=== PATIENT | male | born 2000 | race Caucasian/White ===

== ENCOUNTER → 2018-01-13 | Outpatient (REF) | payer OTHER, BC ==
[2018-01-13 13:16] LABS: INFLUENZA A AMPLIFICATION NEGATIVE (NEGATIVE); INFLUENZA B AMPLIFICATION NEGATIVE (NEGATIVE)
== END ==
LOC: M LAB 12:44
DX: Z11.2 Encounter for screening for other bacterial diseases (principal); Z11.59 Encounter for screening for other viral diseases
CPT/HCPCS: 87430

== ENCOUNTER 2019-03-27 18:03 | Emergency (ER) | payer BC, OTHER ==
[~2019-03-27] VITALS: Ht 180.3 cm; Wt 75.3 kg
[2019-03-27 18:04] VITALS: BP 131/59
--- NOTE | 2019-03-27 18:37 | REP ---
RIGHT HAND, FOUR VIEWS: HISTORY: Injury. There is no acute fracture or dislocation. The joint spaces are normal in appearance. IMPRESSION:There is no acute fracture or dislocation. Electronically Signed by Aly Koenig MD 03/27/2019 07:20 P
[2019-03-27] MEDS ORDERED: IBUPROFEN 600 MG TAB PO ONE (19:00)
== END 2019-03-27 19:03 | disposition home or self-care (01) ==
LOC: M ED 18:03
DX: S60.221A Contusion of right hand, initial encounter (principal); W23.0XXA Caught, crushed, jammed, or pinched between moving objects, initial encounter; Y92.89 Other specified places as the place of occurrence of the external cause; Y93.9 Activity, unspecified; Y99.0 Civilian activity done for income or pay

== ENCOUNTER → 2020-03-11 | Outpatient (REF) | payer OTHER | LOC: M LAB REF 09:37 | PROVIDERS: ATTEND Physician Assistant | DX: J03.90 Acute tonsillitis, unspecified (principal) ==

== ENCOUNTER → 2021-02-09 | Outpatient (REF) | payer OTHER | LOC: M WUC 09:41 | PROVIDERS: ATTEND Physician Assistant | DX: J02.9 Acute pharyngitis, unspecified (principal) ==

== ENCOUNTER 2021-03-23 15:25 | Emergency (ER) | payer BC, OTHER ==
[~2021-03-23] VITALS: Ht 185.4 cm; Wt 174.0 kg
[2021-03-23] MEDS ORDERED: IBUPROFEN 600MG TAB PO ONE (19:35)
[2021-03-23] MEDS ORDERED: CEPHALEXIN 500 MG CAP PO ONE (19:35)
[2021-03-23] MEDS ORDERED: BOOSTRIX/ADACEL VACCINE (DIPHTH/PERTUSS/ACELL/TETANUS) 0.5ML SYR IM ONE (19:45)
--- NOTE | 2021-03-23 20:14 | REP ---
INDICATION: post removal of FB, r/o residual COMPARISON: None. TECHNIQUE: AP and lateral left forearm. FINDINGS: There is no evidence of acute fracture, dislocation, or intrinsic bone disease.In the soft tissues of the proximal to mid forearm there is a rounded 3 mm density which could be calcific. No other abnormal densities are seen in the soft tissues. IMPRESSION: No fracture or dislocation. Round 3 mm density in the soft tissues of the proximal forearm may represent a small calcification. <Electronically signed by Manoj Collins > 03/23/212009
[2021-03-23] MEDS ORDERED: CEPH500C PO (20:18)
[2021-03-23] MEDS ORDERED: NEOSPORIN OINT 0.9 GM PKT TOP ONE (20:20)
[2021-03-23 20:24] VITALS: BP 131/73
== END 2021-03-23 20:34 | disposition home or self-care (01) ==
LOC: M ED 15:25
DX: S51.842A Puncture wound with foreign body of left forearm, initial encounter (principal); X58.XXXA Exposure to other specified factors, initial encounter; Y92.89 Other specified places as the place of occurrence of the external cause; Y93.89 Activity, other specified; Y99.9 Unspecified external cause status; F17.200 Nicotine dependence, unspecified, uncomplicated; Z91.030 Bee allergy status

== ENCOUNTER 2022-01-08 10:59 | Emergency (ER) | payer BC, OTHER ==
[~2022-01-08] VITALS: Ht 182.9 cm; Wt 84.9 kg
[~2022-01-08 10:59] MED LIST: CEPH500C PO
[2022-01-08] MEDS ORDERED: KETOROLAC 30 MG/ML 1ML VIAL IV ONE (13:40)
[2022-01-08] MEDS ORDERED: KETO10TAB PO (13:44)
[2022-01-08 14:13] VITALS: BP 121/71
== END 2022-01-08 14:17 | disposition home or self-care (01) ==
LOC: M ED 10:59
DX: S09.90XA Unspecified injury of head, initial encounter (principal); S40.012A Contusion of left shoulder, initial encounter; Y04.8XXA Assault by other bodily force, initial encounter; Y92.9 Unspecified place or not applicable; Y93.9 Activity, unspecified; Y99.9 Unspecified external cause status; F17.200 Nicotine dependence, unspecified, uncomplicated; Z91.030 Bee allergy status

== ENCOUNTER 2024-02-06 14:50 | Emergency (ER) | payer OTHER, BC ==
[~2024-02-06] VITALS: Ht 180.3 cm; Wt 84.0 kg
[~2024-02-06 14:50] MED LIST changes: +KETO10TAB PO
[2024-02-06 14:53] VITALS: BP 154/85; TEMP 98; O2SAT 98
[2024-02-06] MEDS: LIDOCAINE 5% (LIDODERM) PATCH TD ONE (18:52)
[2024-02-06] MEDS: KETOROLAC 60MG 2ML VIAL IM ONE (18:52)
[2024-02-06] MEDS: methocarbamoL 500 MG TAB PO ONE (18:52)
[2024-02-06] MEDS ORDERED: IBUP-1022 PO (19:42)
[2024-02-06] MEDS ORDERED: METH-1164 PO (19:42)
[2024-02-06] MEDS ORDERED: LIDO5DIS41 TD (19:42)
== END 2024-02-06 19:51 | disposition home or self-care (01) ==
LOC: M ED 14:50
DX: M54.50 Low back pain, unspecified (principal); F17.210 Nicotine dependence, cigarettes, uncomplicated; F10.10 Alcohol abuse, uncomplicated; F19.10 Other psychoactive substance abuse, uncomplicated; Z91.030 Bee allergy status; Z79.1 Long term (current) use of non-steroidal anti-inflammatories (NSAID); Z79.899 Other long term (current) drug therapy
CPT/HCPCS: 72110; 96372; 99282; J1885

== ENCOUNTER → 2024-04-17 | Outpatient (CLI) | payer OTHER, BC ==
[~2024-04-17] MED LIST changes: +IBUP-1022 PO; +LIDO5DIS41 TD; +METH-1164 PO
== END ==
LOC: M PLAIMG 14:21
PROVIDERS: ATTEND Physician Assistant
DX: M51.36 Other intervertebral disc degeneration, lumbar region (principal)

== ENCOUNTER 2025-05-18 14:36 | Emergency (ER) | payer BC, OTHER ==
[~2025-05-18] VITALS: Ht 180.3 cm; Wt 84.8 kg
[~2025-05-18 14:36] MED LIST changes: +LIDO1ADH93 TD; -LIDO5DIS41 TD
[2025-05-18 16:46] LABS: KETONE, URINE AUTO RFX NEGATIVE (NEGATIVE); LEUKOCYTE ESTERASE UR AUTO RFX NEGATIVE (NEGATIVE); MUCUS, URINE RFX SMALL (NEGATIVE); NITRITE, URINE AUTO RFX NEGATIVE (NEGATIVE); RBC, URINE AUTO RFX 0 /HPF (0-3); SQUAM EPITHELIAL CELL UR AURFX 0 /HPF (0-6); WBC, URINE AUTO RFX 1 /HPF (0-3)
[2025-05-18 17:34] LABS: Trichomonas vaginalis (AMP) NOT DETECTED (NEGATIVE)
[2025-05-18] MEDS: KETOROLAC 60 MG/2 ML VIAL IM ONE (17:45)
[2025-05-18 17:58] LABS: GC DNA AMPLIFICATION NEGATIVE (NEGATIVE)
[2025-05-18 18:03] VITALS: BP 115/82; TEMP 98.2; O2SAT 99
== END 2025-05-18 18:06 | disposition home or self-care (01) ==
LOC: M ED 14:36
DX: N50.89 Other specified disorders of the male genital organs (principal); J45.909 Unspecified asthma, uncomplicated; F10.10 Alcohol abuse, uncomplicated; F17.220 Nicotine dependence, chewing tobacco, uncomplicated; Z91.030 Bee allergy status; Z79.1 Long term (current) use of non-steroidal anti-inflammatories (NSAID); Z79.899 Other long term (current) drug therapy
CPT/HCPCS: 76870; 81001; 87661; 87810; 87850; 93976; 96372; 99283; J1885